=== PATIENT | female | born 1995 | race Caucasian/White ===

== ENCOUNTER 2023-03-14 09:01 | Outpatient (OUT) | payer BC, SELFPAY ==
[2023-03-14 09:38] LABS: Estimated Average Glucose 108 mg/dL; Glycohemoglobin A1C 5.4 % (4.5-6.2)
[2023-03-14 09:52] LABS: Chol HDL Ratio 3.7; Cholesterol 176 mg/dL (<=200); Glucose 89 mg/dL (74-106); HDL Cholesterol 47 mg/dL (40-60); Triglycerides 65 mg/dL (<=150)
== END 2023-03-14 09:02 | disposition home or self-care (01) ==
LOC: LAB 09:04
PROVIDERS: PCP Family Medicine; Visit Provider Family Medicine
DX: Z00.00 Encounter for general adult medical examination without abnormal findings (principal); D64.9 Anemia, unspecified
CPT/HCPCS: 36415; 80061; 82728; 82947; 83036